=== PATIENT | female | born 1975 | race Caucasian/White ===

== ENCOUNTER 2019-04-25 12:48 | Emergency (ER) | payer MEDICARE, MEDICAID ==
[~2019-04-25] VITALS: Ht 149.9 cm; Wt 50.4 kg
[2019-04-25 12:59] VITALS: BP 107/78
== END 2019-04-25 14:09 | disposition home or self-care (01) ==
LOC: ED 14:03
DX: S39.012A Strain of muscle, fascia and tendon of lower back, initial encounter (principal); G43.909 Migraine, unspecified, not intractable, without status migrainosus; X50.1XXA Overexertion from prolonged static or awkward postures, initial encounter; Y93.89 Activity, other specified; Y92.89 Other specified places as the place of occurrence of the external cause; Y99.8 Other external cause status
CPT/HCPCS: 99283

== ENCOUNTER 2019-07-25 23:54 | Emergency (ER) | payer MEDICARE, MEDICAID ==
[~2019-07-25] VITALS: Ht 149.9 cm; Wt 53.3 kg
[2019-07-26] VITALS: BP 137/93
--- NOTE | 2019-07-26 00:42 | NUR ---
PT REPORTS TWISTING ANKLE EARLIER TODAY WHILE WALKING UP STAIRS. PT DENIES FALL.
== END 2019-07-26 01:18 | disposition home or self-care (01) ==
LOC: ED 07-26 01:00
DX: S93.491A Sprain of other ligament of right ankle, initial encounter (principal); X50.1XXA Overexertion from prolonged static or awkward postures, initial encounter; Y93.89 Activity, other specified; Y92.410 Unspecified street and highway as the place of occurrence of the external cause; Y99.8 Other external cause status
CPT/HCPCS: 99283